=== PATIENT | female | born 1980 | race Caucasian/White ===

== ENCOUNTER 2021-04-01 13:29 | Emergency (ER) | payer SELFPAY ==
[~2021-04-01] VITALS: Ht 175.3 cm; Wt 76.0 kg
[2021-04-01 14:35] VITALS: BP 139/88
--- NOTE | 2021-04-01 14:47 | PHYS DOC ---
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 Rates her pain 9 out of 10. She denies fever or body aches. She is coming from [facility]. [facility] [employer] O[employer]) Review of Systems: Review of Systems: Constitutional: Denies fever or chills. [] Eyes: Denies change in visual acuity. [] HENT: Denies nasal congestion or sore throat. + Dental abscess and pain [] Respiratory: Denies cough or shortness of breath. [] Cardiovascular: Denies chest pain or edema. [] GI: Denies abdominal pain, nausea, vomiting, bloody stools or diarrhea. [] : Denies dysuria. [] Musculoskeletal: Denies back pain or joint pain. [] Integument: Denies rash. +Dental abscess [] Neurologic: Denies headache, focal weakness or sensory changes. [] Endocrine: Denies polyuria or polydipsia. [] Lymphatic: Denies swollen glands. [] Psychiatric: Denies depression or anxiety. 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 [] HENT: Normocephalic, atraumatic, bilateral external ears normal, oropharynx moist, no oral exudates, nose normal. Abscess behind tooth 8 and 9 that is dime sized, tender and hard. Many dental caries. [] Eyes: PERRLA, EOMI, conjunctiva normal, no discharge. [] Neck: Normal range of motion, no tenderness, supple, no stridor. [] Cardiovascular:Heart rate regular rhythm, no murmur [] Lungs & Thorax: Bilateral breath sounds clear to auscultation [] Abdomen: Bowel sounds normal, soft, no tenderness, no masses, no pulsatile masses. [] Skin: Warm, dry, no erythema, no rash. [] Back: No tenderness, no CVA tenderness. [] Extremities: No tenderness, no cyanosis, no clubbing, ROM intact, no edema. [] Neurologic: Alert and oriented X 3, normal motor function, normal sensory function, no focal deficits noted. [] Psychologic: Affect normal, judgement normal, mood normal. [] (JEFF TODD APRN) PE: Constitutional: Well developed, well nourished, uncomfortable HENT: Normocephalic, atraumatic, hard palate abscess behind left maxillary central incisor Eyes: Conjunctiva normal, no discharge Lungs & Thorax: No respiratory distress, equal chest rise and fall Neurologic: Alert and oriented X 3, no focal deficits noted Psychologic: Affect normal, judgment normal (ANU CRISTOBAL DO) EKG: EKG: [] (JEFF TODD APRN) Radiology/Procedures: Radiology/Procedures: [] (JEFF TODD APRN) Course & Med Decision Making: Course & Med Decision Making Pertinent Labs and Imaging studies reviewed. (See chart for details) See HPI. Alert and oriented x4. Ambulatory steady gait. Skin pink warm dry. Many missing teeth and dental caries. Patient has hard tender abscess to the top of the mouth right behind the back of her teeth 8 and 9. Afebrile. I&D Location: Roof of mouth distal to tooth 8 and 9 Anesthesia: Hurricaine spray and 2% lidocaine Scalpel size: 20-gauge needle Skin: Crooks Drainage: Purulent and bloody Packing: None Patient tolerated the procedure well with no complications. The area was prepped and draped in usual sterile fashion. Area was cleaned with chloehexidine prior to procedure. Return for signs and symptoms of infection education given. Patient to return in 48 hours for wound recheck. [] (JEFF TODD APRN) Dragon Disclaimer: Dragon Disclaimer: This electronic medical record was generated, in whole or in part, using a voice recognition dictation system. (JEFF TODD APRN) Departure Departure Impression: Primary Impression: Dental abscess Disposition: HOME / SELF CARE / HOMELESS Condition: STABLE Referrals: NO PCP (PCP) Patient Instructions: Dental Abscess, Dental Caries Additional Instructions: Follow-up with a dentist soon as possible. Take antibiotic as prescribed and with food. Take the ibuprofen to help with your pain. Use the mouth wash solution to swish and spit after each meal. Scripts Ibuprofen (IBUPROFEN) 600 Mg Tablet 600 MG PO PRN Q6HRS PRN for INFLAMMATION, #30 TAB Prov: JEFF TODD APRN 04/01/21 Clindamycin Hcl (CLINDAMYCIN HCL) 300 Mg Capsule 1 CAP PO TID, #30 CAP Prov: JEFF TODD APRN 04/01/21 Chlorhexidine Gluconate (PERIDEX) 15 Ml Mouthwash 15-30 ML PO TID, #473 ML 0 Refills Prov: JEFF TODD APRN 04/01/21 Attending Signature Attending Signature I have personally interviewed and examined the patient. All charts, labs, and imaging studies were reviewed. I agree with the PA/MORTGAGE LOAN REVIEWER's findings, exam, and plan. (ANU CRISTOBAL DO) JEFF TODD APRN Apr 01, 2021 14:47 ANU CRISTOBAL DO Apr 03, 2021 06:30
[2021-04-01] MEDS ORDERED: CHLO15MO2 PO (14:57)
[2021-04-01] MEDS ORDERED: IBUP-1007 PO (14:57)
[2021-04-01] MEDS ORDERED: CLIN-94 PO (14:57)
[2021-04-01] MEDS ORDERED: LIDOCAINE 2% Multi-Dose 20 ML VIAL. IJ ONE (15:00)
[2021-04-01] MEDS ORDERED: BENZOCAINE ONE 20% MUCOSAL SPRAY. MM (15:00)
== END 2021-04-01 16:21 | disposition home or self-care (01) ==
LOC: ER 13:29
DX: K04.7 Periapical abscess without sinus (principal); Z88.0 Allergy status to penicillin; Z88.8 Allergy status to other drugs, medicaments and biological substances
CPT/HCPCS: 41800; 99283; 99284

== ENCOUNTER 2021-06-16 23:12 | Observation (INO) | payer SELFPAY ==
[~2021-06-16] VITALS: Ht 180.3 cm; Wt 88.8 kg
[~2021-06-16 23:12] MED LIST: CHLO15MO2 PO; CLIN-94 PO; IBUP-1007 PO; OXYC1TAB15 PO
--- NOTE | 2021-06-16 23:28 | PHYS DOC ---
Past Medical History Past Medical History: No Pertinent History Additional Past Medical Histor: "ESOPHAGUS PROBLEMS" DRUG ABUSE Past Surgical History: Cholecystectomy, Tubal ligation Smoking Status: Never Smoker Alcohol Use: None Drug Use: None General Adult EDM: Chief Complaint: NAUSEA/VOMITING/DIARRHEA HPI: HPI: Patient is a 40 year old female who presents here with abdominal pain, nausea, vomiting as well as constipation. She reports mid thoracic back pain as well. She has been previously admitted here several times for complications relating to cholecystectomy. She denies fevers chills. She denies hematemesis. She denies chest pain, cough, dyspnea. She denies urinary symptoms. She has no known previous history of bowel obstructions. Review of Systems: Review of Systems: Constitutional: Denies fever or chills. [] Respiratory: Denies cough or shortness of breath. [] Cardiovascular: Denies chest pain or edema. [] GI: Abdominal pain, nausea, vomiting, constipation. : Denies urinary symptoms Musculoskeletal: Drastic back pain Integument: Denies rash. [] Neurologic: Denies headache, focal weakness or sensory changes. [] Psychiatric: Denies depression or anxiety. [] Heart Score: C/O Chest Pain: No Risk Factors: Risk Factors: DM, Current or recent (<one month) smoker, HTN, HLP, family history of CAD, obesity. Risk Scores: Score 0 - 3: 2.5% MACE over next 6 weeks - Discharge Home Score 4 - 6: 20.3% MACE over next 6 weeks - Admit for Clinical Observation Score 7 - 10: 72.7% MACE over next 6 weeks - Early Invasive Strategies Allergies: Allergies: Allergies Coded Allergies Type Severity Reaction Last Updated Verified nalbuphine HCl Allergy Severe ANAPHYLAXIS 06/09/21 Yes Penicillins Allergy Intermediate Rash 06/17/13 Yes Physical Exam: PE: Constitutional: Well developed, well nourished, no acute distress, non-toxic appearance. [] HENT: Normocephalic, atraumatic, mucous membranes are moist Eyes: Conjunctiva normal, no discharge. No scleral icterus Neck: Normal range of motion, no tenderness, supple, no stridor. [] Cardiovascular:Heart rate regular rhythm, no murmur [] Lungs & Thorax: Bilateral breath sounds clear to auscultation [] Abdomen: Abdomen is soft, nondistended, epigastric tenderness to palpation, periumbilical tenderness to palpation. No lower abdominal tenderness. No guarding, no rebound tenderness, no rigidity. No CVA tenderness. No flank abdominal ecchymoses are noted. Skin: Warm, dry, no erythema, no rash. No jaundice. Back: No tenderness, no CVA tenderness. [] Extremities: No tenderness, no cyanosis, no clubbing, ROM intact, no edema. [] Neurologic: Alert and oriented X 3, normal motor function, normal sensory function, no focal deficits noted. [] Psychologic: Affect normal, judgement normal, mood normal. [] EKG: EKG: [] Radiology/Procedures: Radiology/Procedures: IMAGING REPORT Signed PATIENT: NICOLETTE DERAS ACCOUNT: [id number] : 1980 LOCATION: ER AGE: 40 SEX: F EXAM STATUS: REG ER ORD. PHYSICIAN: FEROZ ALAVRADO DO REASON: abd pain, back pain, n/v, constipation, OMNI 300 75 ML IV PROCEDURE: CT ABD PELV W/ IV CONTRST ONLY PQRS Compliance Statement: One or more of the following individualized dose reduction techniques were utilized for this examination: 1. Automated exposure control 2. Adjustment of the mA and/or kV according to patient size 3. Use of iterative reconstruction technique CT abdomen/pelvis with contrast 06/17/2021 1:08 AM INDICATION: Abdominal pain, back pain. COMPARISON: CT abdomen/pelvis 06/09/2021 TECHNIQUE: Multiple axial CT images of the abdomen and pelvis were obtained after the intravenous administration of 75 mL Omnipaque 300. Coronal and sagittal reformats are provided. FINDINGS: There is subsegmental atelectasis or scarring in the inferior lingula. Lung bases are otherwise clear. Heart size within normal limits. Liver, spleen, adrenal glands and pancreas are normal in appearance. Gallbladder surgically absent. Interval increase in size of the common bile duct as compared to prior examination from 06/09/2021 currently measuring 9 mm and previously measuring 5 mm. Distal obstruction is a differential consideration. There is mild prominence of the main pancreatic duct not previously seen. The abdominal aorta is normal in course and caliber. There are no pathologically enlarged lymph nodes in the abdomen and pelvis. There is no abdominal free fluid. There is no free intraperitoneal air. Small and large bowel are normal in caliber. There is no evidence for bowel obstruction. There are no pericolonic inflammatory changes. A normal, nondilated appendix is visualized without adjacent inflammatory changes. The kidneys enhance symmetrically. There is no suspicious renal mass. There is no hydronephrosis. There are no suspected calculi within the kidneys, ureters or urinary bladder. Urinary bladder is within normal limits given degree of distention. Uterus and adnexa are normal by CT. Mild adnexal varices. No suspicious osseous abnormality is identified. IMPRESSION: There is interval increase in size of the common bile duct with increased intrahepatic and extrahepatic biliary ductal dilatation. Consideration may be given for distal obstruction as may be seen with choledocholithiasis. Further characterization with MRCP is recommended. Correlate with hepatobiliary enzymes. Electronically signed by: Meme Yañez MD (06/17/2021 1:42 AM) [facility] DICTATED and SIGNED BY: MEME YAÑEZ MD DATE: 06/17/21 [id number] 0 Course & Med Decision Making: Course & Med Decision Making Pertinent Labs and Imaging studies reviewed. (See chart for details) Patient is given IV fluids, IV Zofran, IV morphine. She is kept n.p.o. She reports feeling much better. Transaminases appear to be significantly more elevated than previous. CT indicates possibility of common bile duct obstruction with increased intraductal hepatic dilation and common bile duct dilation. I have recommended hospitalization and admission, GI consultation. She is comfortable with this plan. She is excepted for admission by Dr. Montoya. Kisha Disclaimer: Kisha Disclaimer: This electronic medical record was generated, in whole or in part, using a voice recognition dictation system. Departure Departure Impression: Primary Impression: Abdominal pain Additional Impressions: Nausea and vomiting Transaminitis Common bile duct dilatation Disposition: ADMITTED INPATIENT Admitting Physician: JOHN (Dr. Montoya) Condition: STABLE Referrals: NO PCP (PCP) FEROZ ALVARADO DO Jun 16, 2021 23:28
[2021-06-17 00:15] LABS: BASO # 0.1 x10^3/uL (0.0-0.2); BASO % 1 % (0-3); EOS # 0.6 x10^3/uL (0.0-0.7); EOS % 6 % (0-3); HEMATOCRIT 38.2 % (36.0-47.0); HEMOGLOBIN 12.3 g/dL (12.0-15.5); LYMPH # 2.4 x10^3/uL (1.0-4.8); LYMPH % 25 % (24-48); MEAN CORPUSCULAR HEMOGLOBIN 26 pg (25-35); MEAN CORPUSCULAR HGB CONC 32 g/dL (31-37); MEAN CORPUSCULAR VOLUME 82 fL (79-100); MONO # 0.8 x10^3/uL (0.0-1.1); MONO % 9 % (0-9); NEUT % 61 % (31-73); PLATELET COUNT 439 x10^3/uL (140-400); RED BLOOD COUNT 4.69 x10^6/uL (3.50-5.40); RED CELL DISTRIBUTION WIDTH 15.1 % (11.5-14.5); WHITE BLOOD COUNT 9.9 x10^3/uL (4.0-11.0)
[2021-06-17 00:19] LABS: U PREG PATIENT NEGATIVE (NEG)
[2021-06-17 00:22] LABS: BILIRUBIN,URINE NEGATIVE (NEG); CLARITY,URINE CLEAR; COLOR,URINE YELLOW; NITRITE,URINE NEGATIVE (NEG); PROTEIN,URINE NEGATIVE (NEG-TRACE); UROBILINOGEN,URINE 0.2 mg/dL (0.2 mg/dL)
[2021-06-17 00:23] LABS: CALCIUM 8.7 mg/dL (8.5-10.1); CREATININE 0.7 mg/dL (0.6-1.0); GFR 91.8
[2021-06-17 00:26] LABS: BACTERIA,URINE MODERATE /HPF (0-FEW); RBC,URINE OCC /HPF (0-2)
[2021-06-17 00:30] LABS: ALBUMIN 3.5 g/dL (3.4-5.0); ALBUMIN/GLOBULIN RATIO 0.9 (1.0-1.7); TOTAL BILIRUBIN 0.3 mg/dL (0.2-1.0); TOTAL PROTEIN 7.5 g/dL (6.4-8.2)
[2021-06-17] MEDS ORDERED: MORPHINE SULFATE 4 MG/ML INJ. IVP ONE (00:30)
[2021-06-17] MEDS ORDERED: ONDANSETRON PF 4 MG/2 ML VIAL. IVP ONE (00:30)
[2021-06-17] MEDS ORDERED: IV NORMAL SALINE 1000ML BAG 1,000 ML IV ONE (00:30)
[2021-06-17] MEDS ORDERED: CONTRAST GIVEN. MC PRN (01:15)
[2021-06-17] MEDS ORDERED: IOHEXOL 300 MG/ML 100ML VIAL. IV ONE (01:30)
--- NOTE | 2021-06-17 01:44 | RAD ---
PQRS Compliance Statement: One or more of the following individualized dose reduction techniques were utilized for this examinat ion: 1. Automated exposure control 2. Adjustment of the mA and/or kV according to patient size 3. Use of iterative reconstruction technique CT abdomen/pelvis with contrast 06/17/2021 1:08 AM INDICATION: Abdominal pain, back pain. COMPARISON: CT abdomen/pelvis 06/09/2021 TECHNIQUE: Multiple axial CT images of the abdomen and pelvis were obtained after the intravenous adm inistration of 75 mL Omnipaque 300. Coronal and sagittal reformats are provided. FINDINGS: There is subsegmental atelectasis or scarring in the inferior lingula. Lung bases are otherwise clear . Heart size within normal limits. Liver, spleen, adrenal glands and pancreas are normal in appearanc e. Gallbladder surgically absent. Interval increase in size of the common bile duct as compared to pr ior examination from 06/09/2021 currently measuring 9 mm and previously measuring 5 mm. Distal obstruc tion is a differential consideration. There is mild prominence of the main pancreatic duct not previo usly seen. The abdominal aorta is normal in course and caliber. There are no pathologically enlarged lymph nodes in the abdomen and pelvis. There is no abdominal free fluid. There is no free intraperitoneal air. Small and large bowel are normal in caliber. There is no evidence for bowel obstruction. There are no pericolonic inflammatory changes. A normal, nondilated appendix is visualized without adjacent infla mmatory changes. The kidneys enhance symmetrically. There is no suspicious renal mass. There is no hydronephrosis. The re are no suspected calculi within the kidneys, ureters or urinary bladder. Urinary bladder is within normal limits given degree of distention. Uterus and adnexa are normal by C T. Mild adnexal varices. No suspicious osseous abnormality is identified. IMPRESSION: There is interval increase in size of the common bile duct with increased intrahepatic and extrahepat ic biliary ductal dilatation. Consideration may be given for distal obstruction as may be seen with c holedocholithiasis. Further characterization with MRCP is recommended. Correlate with hepatobiliary e nzymes. Electronically signed by: Janna Jones MD (06/17/2021 1:42 AM) [facility]
[2021-06-17] MEDS ORDERED: OXYC1TAB15 PO (05:59)
[2021-06-17] MEDS ORDERED: SERT100T PO (05:59)
[2021-06-17] MEDS ORDERED: MIRT-7 PO (05:59)
[2021-06-17] MEDS ORDERED: GABA300C18 PO (05:59)
[2021-06-17] MEDS ORDERED: METR-34 PO (05:59)
[2021-06-17] MEDS ORDERED: LEVO500T9 PO (05:59)
[2021-06-17] MEDS ORDERED: CLON0.1T PO (05:59)
[2021-06-17 07:00] VITALS: BP 106/60
[2021-06-17] MEDS ORDERED: ONDANSETRON PF 4 MG/2 ML VIAL. IVP PRN ×2 (07:45→08:00)
[2021-06-17] MEDS ORDERED: MORPHINE SULFATE 4 MG/ML INJ. IV PRN (07:45)
--- NOTE | 2021-06-17 07:58 | PDOC1 ---
History and Physical Date of Admission Date of Admission DATE: 06/17/21 TIME: 07:46 Identification/Chief Complaint Chief Complaint Abdominal pain Source Source: Patient History of Present Illness History of Present Illness Ms Rutherford is a 40yo female with PMHx methamphetamine abuse in remission who comes to ED with worsening abdominal pain. Had some associated emesis. On review of systems she notes lower extremity numbness and tingling and increased urinary frequency. Status post laparoscopic cholecystectomy on 06/03/2021 who was readmitted to the hospital for abdominal pain 06/09 to 06/11/2021 which resolved she was able to eat given MEDICARE NURSE referral for concern for pelvic congestion syndrome. She returns again. Labs with WBC 9.9, Hb 12.3, platelets 439, NA 141, K4, BUN 14, CR 0.7, glucose 100, calcium 8.7, bilirubin 0.3, AST 101, ALT 127, alkaline phosphatase 174, albumin 3.5, lipase 140, urinalysis with many squamous epithelial cells negative [id number] test. CT abdomen pelvis with Toval ducts dilation intrahepatic and extrahepatic biliary ductal dilation concerning for possible choledocholithiasis Past Medical History Psych: Anxiety Family History Family History: Other Social History Smoke: 1 pack per day ALCOHOL: none Drugs: Crystal meth Current Problem List Problem List Problems Medical Problems: (1) Abdominal pain Status: Acute (2) Common bile duct dilatation Status: Acute (3) Nausea and vomiting Status: Acute (4) Transaminitis Status: Acute Current Medications Current Medications Current Medications Morphine Sulfate (Morphine Sulfate) 4 mg 1X ONCE IVP Last administered on 06/17/21at 00:19; Start 06/17/21 at 00:30; Stop 06/17/21 at 00:31; Status DC Ondansetron HCl (Zofran) 4 mg 1X ONCE IVP Last administered on 06/17/21at 00:19; Start 06/17/21 at 00:30; Stop 06/17/21 at 00:31; Status DC Sodium Chloride 1,000 ml @ 1,000 mls/hr 1X ONCE IV Last administered on 06/17/21at 00:16; Start 06/17/21 at 00:30; Stop 06/17/21 at 01:29; Status DC Iohexol (Omnipaque 300 Mg/ml) 75 ml 1X ONCE IV Last administered on 06/17/21at 01:29; Start 06/17/21 at 01:30; Stop 06/17/21 at 01:31; Status DC Info (CONTRAST GIVEN -- Rx MONITORING) 1 each PRN DAILY PRN MC SEE COMMENTS; Start 06/17/21 at 01:15; Stop 06/19/21 at 01:14 Ondansetron HCl (Zofran) 4 mg PRN Q8HRS PRN IVP NAUSEA/VOMITING; Start 06/17/21 at 07:45; Stop 06/18/21 at 07:44; Status UNV Dextrose/Sodium Chloride 1,000 ml @ 100 mls/hr Q10H IV ; Start 06/17/21 at 07:45; Status UNV Morphine Sulfate (Morphine Sulfate) 4 mg PRN Q2HR PRN IV PAIN; Start 06/17/21 at 07:45; Status UNV Active Scripts Active Ibuprofen 600 Mg Tablet 600 Mg PO PRN Q6HRS PRN Reported Metronidazole 500 Mg Tablet 1 Tab PO TID 7 Days Levofloxacin 500 Mg Tablet 1 Tab PO DAILY Gabapentin (Gabapentin) 300 Mg Capsule 300 Mg PO BID Percocet 5-325 Mg Tablet (Oxycodone/Acetaminophen) 1 Each Tablet 2 Tab PO PRN Q4HRS PRN Percocet 5-325 Mg Tablet (Oxycodone/Acetaminophen) 1 Each Tablet 1 Tab PO PRN Q4HRS PRN Mirtazapine 15 Mg Tablet 1 Tab PO QHS Zoloft (Sertraline Hcl) 100 Mg Tablet 100 Mg PO DAILY Clonidine Hcl 0.1 Mg Tablet 1 Tab PO QHS Allergies Allergies: Coded Allergies: nalbuphine HCl (Verified Allergy, Severe, ANAPHYLAXIS, 06/09/21) Penicillins (Verified Allergy, Intermediate, Rash, 06/17/13) ROS General: YES: Fatigue, Malaise, Appetite; No: Chills, Night Sweats, Other PSYCHOLOGICAL ROS: YES: Anxiety; No: Behavioral Disorder, Concentration difficultie, Decreased libido, Depression, Disorientation, Hallucinations, Hostility, Irritablity, Memory difficulties, Mood Swings, Obsessive thoughts, Physical abuse, Sexual abuse, Sleep disturbances, Suicidal ideation, Other Eyes: No Blurry vision, No Decreased vision, No Double vision, No Dry eyes, No Excessive tearing, No Eye Pain, No Itchy Eyes, No Loss of vision, No Photophobia, No Scotomata, No Uses contacts, No Uses glasses, No Other HEENT: No: Heacaches, Visual Changes, Hearing change, Nasal congestion, Nasal discharge, Oral lesions, Sinus pain, Sore Throat, Epistaxis, Sneezing, Snoring, Tinnitus, Vertigo, Vocal changes, Other ALLERGY AND IMMUNOLOGY: No: Hives, Insect Bite Sensitivity, Itchy/Watery Eyes, Nasal Congestion, Post Nasal Drip, Seasonal Allergies, Other Hematological and Lymphatic: No: Bleeding Problems, Blood Clots, Blood Transfusions, Brusing, Night Sweats, Pallor, Swollen Lymph Nodes, Other ENDOCRINE: No: Breast Changes, Galactorrhea, Hair Pattern Changes, Hot Flashes, Malaise/lethargy, Mood Swings, Palpitations, Polydipsia/polyuria, Skin Changes, Temperature Intolerance, Unexpected Weight Changes, Other Breast: No New/Changing Breast Lumps, No Nipple changes, No Nipple discharge, No Other Respiratory: No: Cough, Hemoptysis, Orthopnea, Pleuritic Pain, Shortness of breath, SOB with excertion, Sputum Changes, Stridor, Tachypnea, Wheezing, Other Cardiovascular: No Chest Pain, No Palpitations, No Orthopnea, No Paroxysmal Noc. Dyspnea, No Edema, No Lt Headedness, No Other Gastrointestinal: Yes Nausea, Yes Vomiting, Yes Abdominal Pain; No Diarrhea, No Constipation, No Melena, No Hematochezia, No Other Genitourinary: No Dysuria, No Frequency, No Incontinence, No Hematuria, No Retention, No Discharge, No Urgency, No Pain, No Flank Pain, No Other, No , No , No , No , No , No , No Musculoskeletal: No Gait Disturbance, No Joint Pain, No Joint Stiffness, No Joint Swelling, No Muscle Pain, No Muscular Weakness, No Pain In:, No Swelling In:, No Other Neurological: Yes Numbness/Tingling; No Behavorial Changes, No Bowel/Bladder ControlChng, No Confusion, No Dizziness, No Gait Disturbance, No Headaches, No Impaired Coord/balance, No Memory Loss, No Seizures, No Speech Problems, No Tremors, No Visual Changes, No Weakness, No Other Skin: No Dry Skin, No Eczema, No Hair Changes, No Lumps, No Mole Changes, No Mottling, No Nail Changes, No Pruritus, No Rash, No Skin Lesion Changes, No Other, No Acne Physical Exam General: Alert, Oriented X3, Cooperative, moderate distress HEENT: Atraumatic, PERRLA, EOMI, Mucous membr. moist/pink Lungs: Clear to auscultation, Normal air movement Heart: S1S2, RRR, no thrills, no rubs, no gallops, no murmurs Abdomen: Normal bowel sounds, Soft, No hepatosplenomegaly, No masses, Other (epigastric pain) Rectal Exam: not examined Extremities: No clubbing, No cyanosis, No edema, Normal pulses, No tenderness/swelling Skin: No rashes, No breakdown, No significant lesion Neuro: Normal gait, Normal speech, Strength at 5/5 X4 ext, Normal tone, Sensation intact, Cranial nerves 3-12 NL, Reflexes 2+ Psych/Mental Status: Mental status NL, Mood NL Vitals Vitals Vital Signs Date Time Temp Pulse Resp B/P (MAP) Pulse Ox O2 Delivery O2 Flow Rate FiO2 06/17/21 04:30 Room Air 06/17/21 04:01 58 14 94/52 (66) 97 06/16/21 23:35 98.0 98.0 Labs Labs Laboratory Tests Test 06/17/21 00:02 06/17/21 00:05 Bedside Urine HCG, Qualitative Hcg negative (Negative) White Blood Count 9.9 x10^3/uL (4.0-11.0) Red Blood Count 4.69 x10^6/uL (3.50-5.40) Hemoglobin 12.3 g/dL (12.0-15.5) Hematocrit 38.2 % (36.0-47.0) Mean Corpuscular Volume 82 fL (79-100) Mean Corpuscular Hemoglobin 26 pg (25-35) Mean Corpuscular Hemoglobin Concent 32 g/dL (31-37) Red Cell Distribution Width 15.1 % (11.5-14.5) Platelet Count 439 x10^3/uL (140-400) Neutrophils (%) (Auto) 61 % (31-73) Lymphocytes (%) (Auto) 25 % (24-48) Monocytes (%) (Auto) 9 % (0-9) Eosinophils (%) (Auto) 6 % (0-3) Basophils (%) (Auto) 1 % (0-3) Neutrophils # (Auto) 6.0 x10^3/uL (1.8-7.7) Lymphocytes # (Auto) 2.4 x10^3/uL (1.0-4.8) Monocytes # (Auto) 0.8 x10^3/uL (0.0-1.1) Eosinophils # (Auto) 0.6 x10^3/uL (0.0-0.7) Basophils # (Auto) 0.1 x10^3/uL (0.0-0.2) Urine Collection Type Unknown Urine Color Yellow Urine Clarity Clear Urine pH 6.0 (<5.0-8.0) Urine Specific [place] >=1.030 (1.000-1.030) Urine Protein Negative mg/dL (NEG-TRACE) Urine Glucose (UA) Negative mg/dL (NEG) Urine Ketones (Stick) Negative mg/dL (NEG) Urine Blood Moderate (NEG) Urine Nitrite Negative (NEG) Urine Bilirubin Negative (NEG) Urine Urobilinogen Dipstick 0.2 mg/dL (0.2 mg/dL) Urine Leukocyte Esterase Trace (NEG) Urine RBC Occ /HPF (0-2) Urine WBC 1-4 /HPF (0-4) Urine Squamous Epithelial Cells Many /LPF Urine Bacteria Moderate /HPF (0-FEW) Urine Mucus Marked /LPF Urine Test Negative (NEG) Sodium Level 141 mmol/L (136-145) Potassium Level 4.0 mmol/L (3.5-5.1) Chloride Level 105 mmol/L (98-107) Carbon Dioxide Level 25 mmol/L (21-32) Anion Gap 11 (6-14) Blood Urea Nitrogen 14 mg/dL (7-20) Creatinine 0.7 mg/dL (0.6-1.0) Estimated GFR (Cockcroft-Gault) 91.8 BUN/Creatinine Ratio 20 (6-20) Glucose Level 100 mg/dL (70-99) Calcium Level 8.7 mg/dL (8.5-10.1) Total Bilirubin 0.3 mg/dL (0.2-1.0) Aspartate Amino Transf (AST/SGOT) 101 U/L (15-37) Alanine Aminotransferase (ALT/SGPT) 127 U/L (14-59) Alkaline Phosphatase 174 U/L (46-116) Total Protein 7.5 g/dL (6.4-8.2) Albumin 3.5 g/dL (3.4-5.0) Albumin/Globulin Ratio 0.9 (1.0-1.7) Lipase 140 U/L (73-393) Laboratory Tests Test 06/17/21 00:02 06/17/21 00:05 Bedside Urine HCG, Qualitative Hcg negative (Negative) White Blood Count 9.9 x10^3/uL (4.0-11.0) Red Blood Count 4.69 x10^6/uL (3.50-5.40) Hemoglobin 12.3 g/dL (12.0-15.5) Hematocrit 38.2 % (36.0-47.0) Mean Corpuscular Volume 82 fL (79-100) Mean Corpuscular Hemoglobin 26 pg (25-35) Mean Corpuscular Hemoglobin Concent 32 g/dL (31-37) Red Cell Distribution Width 15.1 % (11.5-14.5) Platelet Count 439 x10^3/uL (140-400) Neutrophils (%) (Auto) 61 % (31-73) Lymphocytes (%) (Auto) 25 % (24-48) Monocytes (%) (Auto) 9 % (0-9) Eosinophils (%) (Auto) 6 % (0-3) Basophils (%) (Auto) 1 % (0-3) Neutrophils # (Auto) 6.0 x10^3/uL (1.8-7.7) Lymphocytes # (Auto) 2.4 x10^3/uL (1.0-4.8) Monocytes # (Auto) 0.8 x10^3/uL (0.0-1.1) Eosinophils # (Auto) 0.6 x10^3/uL (0.0-0.7) Basophils # (Auto) 0.1 x10^3/uL (0.0-0.2) Urine Collection Type Unknown Urine Color Yellow Urine Clarity Clear Urine pH 6.0 (<5.0-8.0) Urine Specific [place] >=1.030 (1.000-1.030) Urine Protein Negative mg/dL (NEG-TRACE) Urine Glucose (UA) Negative mg/dL (NEG) Urine Ketones (Stick) Negative mg/dL (NEG) Urine Blood Moderate (NEG) Urine Nitrite Negative (NEG) Urine Bilirubin Negative (NEG) Urine Urobilinogen Dipstick 0.2 mg/dL (0.2 mg/dL) Urine Leukocyte Esterase Trace (NEG) Urine RBC Occ /HPF (0-2) Urine WBC 1-4 /HPF (0-4) Urine Squamous Epithelial Cells Many /LPF Urine Bacteria Moderate /HPF (0-FEW) Urine Mucus Marked /LPF Urine Test Negative (NEG) Sodium Level 141 mmol/L (136-145) Potassium Level 4.0 mmol/L (3.5-5.1) Chloride Level 105 mmol/L (98-107) Carbon Dioxide Level 25 mmol/L (21-32) Anion Gap 11 (6-14) Blood Urea Nitrogen 14 mg/dL (7-20) Creatinine 0.7 mg/dL (0.6-1.0) Estimated GFR (Cockcroft-Gault) 91.8 BUN/Creatinine Ratio 20 (6-20) Glucose Level 100 mg/dL (70-99) Calcium Level 8.7 mg/dL (8.5-10.1) Total Bilirubin 0.3 mg/dL (0.2-1.0) Aspartate Amino Transf (AST/SGOT) 101 U/L (15-37) Alanine Aminotransferase (ALT/SGPT) 127 U/L (14-59) Alkaline Phosphatase 174 U/L (46-116) Total Protein 7.5 g/dL (6.4-8.2) Albumin 3.5 g/dL (3.4-5.0) Albumin/Globulin Ratio 0.9 (1.0-1.7) Lipase 140 U/L (73-393) Images Images CT ABD PELV W/ IV CONTRST ONLY There is subsegmental atelectasis or scarring in the inferior lingula. Lung bases are otherwise clear. Heart size within normal limits. Liver, spleen, adrenal glands and pancreas are normal in appearance. Gallbladder surgically absent. Interval increase in size of the common bile duct as compared to prior examination from 06/09/2021 currently measuring 9 mm and previously measuring 5 mm. Distal obstruction is a differential consideration. There is mild prominence of the main pancreatic duct not previously seen. The abdominal aorta is normal in course and caliber. There are no pathologically enlarged lymph nodes in the abdomen and pelvis. There is no abdominal free fluid. There is no free intraperitoneal air. Small and large bowel are normal in caliber. There is no evidence for bowel obstruction. There are no pericolonic inflammatory changes. A normal, nondilated appendix is visualized without adjacent inflammatory changes. The kidneys enhance symmetrically. There is no suspicious renal mass. There is no hydronephrosis. There are no suspected calculi within the kidneys, ureters or urinary bladder. Urinary bladder is within normal limits given degree of distention. Uterus and adnexa are normal by CT. Mild adnexal varices. No suspicious osseous abnormality is identified. IMPRESSION: There is interval increase in size of the common bile duct with increased intrahepatic and extrahepatic biliary ductal dilatation. Consideration may be given for distal obstruction as may be seen with choledocholithiasis. Further characterization with MRCP is recommended. Correlate with hepatobiliary enzymes. VTE Prophylaxis Ordered VTE Prophylaxis Devices: No VTE Pharmacological Prophylaxi: Yes Assessment/Plan Assessment/Plan Abdominal pain - likely choledocholithiasis vs expected post-cholecystectomy changes. Will keep NPO. Consult GI. IV pain and nausea control Bilateral lower extremity pain - good pulses. Will check mag, phos, TSH, B12 Methamphetamine abuse in remission - over 90 days Current Every Day Smoker - counseled on cessation, offered nicotine replacement therapy FEN - NPO PPX - lovenox FULL CODE Dispo - inpatient Justifications for Admission Other Justification MARCUS LAY MD Jun 17, 2021 07:58
[2021-06-17] MEDS ORDERED: NICOTINE 21MG PATCH. TD PRN (08:00)
[2021-06-17] MEDS ORDERED: BISACODYL 10 MG SUPP.RECT. PR PRN (08:00)
[2021-06-17] MEDS ORDERED: ACETAMINOPHEN 650 MG SUPP.RECT. PR PRN (08:00)
[2021-06-17] MEDS ORDERED: PROMETHAZINE 25 MG SUPP.RECT. PR PRN (08:00)
[2021-06-17] MEDS: IV DEXTROSE 5 %-0.45 % NACL 1,000 ML IV SCH ×2 (08:53→20:47)
--- NOTE | 2021-06-17 09:00 | NUR ---
Consult called in to Dr. Sorensen answering service.
[2021-06-17 10:51] VITALS: BP 110/70
[2021-06-17 11:05] LABS: BARBITURATES NEG (NEG); BENZODIAZEPINES NEG (NEG); CANNABINOIDS NEG (NEG); COCAINE NEG (NEG); METHADONE NEG (NEG); OPIATES POS (NEG); PHENCYCLIDINE NEG (NEG)
[2021-06-17 11:08] LABS: AMPHETAMINE/METHAMPHETAMINE NEG (NEG)
[2021-06-17] MEDS ORDERED: ONDANSETRON ODT 4 MG TAB.RAPDIS. PO PRN (13:45)
--- NOTE | 2021-06-17 13:54 | PDOC2 ---
GI CONSULT Date of Service: DATE: 06/17/21 TIME: 13:42 Reason For Consult: Elevated LFT's/dilated CBD HPI: HPI: 40 y/o female we saw earlier this month for abdominal pain. Found to have biliary dyskinesia and underwent lap kamryn. In for other issues since. Presented with nausea and vomiting to ER and admitted. On imaging, increase in CBD caliber and mildly elevated LFT's though normal bilirubin. We were asked to see. Currently denies abdominal symptoms or any nausea and vomiting. Says she came to ER due to lower back pain radiating into legs and bilateral "pins and needles" sensation in LE's. Denies reflux/heartburn, dysphagia, chronic n/v or abd pain, diarrhea, constipation, hematemesis, hematochezia, melena, and weight loss. EGD @ [facility] ~1 year ago for dysphagia not grossly remarkable though random biopsies from esophagus (unclear where exactly) showed increased intraepithelial eosinophils, says had esophageal dilation and was given a medication (not sure what) she took for awhile. No previous colonoscopy. Denies liver, pancreas, and PUD history. Daily ibuprofen for awhile. PMH: PMH: Psych issues, substance abuse. S/p BTL and lap kamryn. FH: Family History: Cancer (father/stomach) Social History: Smoke: Quit ALCOHOL: none Drugs: Crystal meth (in the past) ROS: GEN: Denies fevers, chills, sweats HEENT: Denies blurred vision, sore throat CV: Denies chest pain RESP: Denies shortness of air, cough GI: Per HPI : Denies hematuria, dysuria ENDO: Denies weight changes NEURO: Denies confusion, dizziness MSK: Denies weakness, joint pain/swelling SKIN: Denies jaundice, pruritus Vitals: Vitals: Vital Signs Date Time Temp Pulse Resp B/P (MAP) Pulse Ox O2 Delivery O2 Flow Rate FiO2 06/17/21 10:51 98.0 64 18 110/70 (83) 96 Room Air 98.0 Labs: Labs: Laboratory Tests Test 06/17/21 00:02 06/17/21 00:05 06/17/21 10:45 Bedside Urine HCG, Qualitative Hcg negative (Negative) White Blood Count 9.9 x10^3/uL (4.0-11.0) Red Blood Count 4.69 x10^6/uL (3.50-5.40) Hemoglobin 12.3 g/dL (12.0-15.5) Hematocrit 38.2 % (36.0-47.0) Mean Corpuscular Volume 82 fL (79-100) Mean Corpuscular Hemoglobin 26 pg (25-35) Mean Corpuscular Hemoglobin Concent 32 g/dL (31-37) Red Cell Distribution Width 15.1 % (11.5-14.5) Platelet Count 439 x10^3/uL (140-400) Neutrophils (%) (Auto) 61 % (31-73) Lymphocytes (%) (Auto) 25 % (24-48) Monocytes (%) (Auto) 9 % (0-9) Eosinophils (%) (Auto) 6 % (0-3) Basophils (%) (Auto) 1 % (0-3) Neutrophils # (Auto) 6.0 x10^3/uL (1.8-7.7) Lymphocytes # (Auto) 2.4 x10^3/uL (1.0-4.8) Monocytes # (Auto) 0.8 x10^3/uL (0.0-1.1) Eosinophils # (Auto) 0.6 x10^3/uL (0.0-0.7) Basophils # (Auto) 0.1 x10^3/uL (0.0-0.2) Urine Collection Type Unknown Urine Color Yellow Urine Clarity Clear Urine pH 6.0 (<5.0-8.0) Urine Specific [place] >=1.030 (1.000-1.030) Urine Protein Negative mg/dL (NEG-TRACE) Urine Glucose (UA) Negative mg/dL (NEG) Urine Ketones (Stick) Negative mg/dL (NEG) Urine Blood Moderate (NEG) Urine Nitrite Negative (NEG) Urine Bilirubin Negative (NEG) Urine Urobilinogen Dipstick 0.2 mg/dL (0.2 mg/dL) Urine Leukocyte Esterase Trace (NEG) Urine RBC Occ /HPF (0-2) Urine WBC 1-4 /HPF (0-4) Urine Squamous Epithelial Cells Many /LPF Urine Bacteria Moderate /HPF (0-FEW) Urine Mucus Marked /LPF Urine Test Negative (NEG) Sodium Level 141 mmol/L (136-145) Potassium Level 4.0 mmol/L (3.5-5.1) Chloride Level 105 mmol/L (98-107) Carbon Dioxide Level 25 mmol/L (21-32) Anion Gap 11 (6-14) Blood Urea Nitrogen 14 mg/dL (7-20) Creatinine 0.7 mg/dL (0.6-1.0) Estimated GFR (Cockcroft-Gault) 91.8 BUN/Creatinine Ratio 20 (6-20) Glucose Level 100 mg/dL (70-99) Calcium Level 8.7 mg/dL (8.5-10.1) Total Bilirubin 0.3 mg/dL (0.2-1.0) Aspartate Amino Transf (AST/SGOT) 101 U/L (15-37) Alanine Aminotransferase (ALT/SGPT) 127 U/L (14-59) Alkaline Phosphatase 174 U/L (46-116) Total Protein 7.5 g/dL (6.4-8.2) Albumin 3.5 g/dL (3.4-5.0) Albumin/Globulin Ratio 0.9 (1.0-1.7) Lipase 140 U/L (73-393) Urine Opiates Screen Pos (NEG) Urine Methadone Screen Neg (NEG) Urine Barbiturates Neg (NEG) Urine Phencyclidine Screen Neg (NEG) Urine Amphetamine/Methamphetamine Neg (NEG) Urine Benzodiazepines Screen Neg (NEG) Urine Cocaine Screen Neg (NEG) Urine Cannabinoids Screen Neg (NEG) Urine Ethyl Alcohol Neg (NEG) Allergies: Coded Allergies: nalbuphine HCl (Verified Allergy, Severe, ANAPHYLAXIS, 06/09/21) Penicillins (Verified Allergy, Intermediate, Rash, 06/17/13) Medications: Current Medications Medications (Trade) Dose Ordered Sig/Roger Route PRN Reason Start Time Stop Time Status Last Admin Dose Admin Morphine Sulfate (Morphine Sulfate) 4 mg 1X ONCE IVP 06/17/21 00:30 06/17/21 00:31 DC 06/17/21 00:19 Ondansetron HCl (Zofran) 4 mg 1X ONCE IVP 06/17/21 00:30 06/17/21 00:31 DC 06/17/21 00:19 Sodium Chloride 1,000 ml @ 1,000 mls/hr 1X ONCE IV 06/17/21 00:30 06/17/21 01:29 DC 06/17/21 00:16 Iohexol (Omnipaque 300 Mg/ml) 75 ml 1X ONCE IV 06/17/21 01:30 06/17/21 01:31 DC 06/17/21 01:29 Dextrose/Sodium Chloride 1,000 ml @ 100 mls/hr Q10H IV 06/17/21 08:30 06/17/21 08:53 Morphine Sulfate (Morphine Sulfate) 4 mg PRN Q2HR PRN IV PAIN 06/17/21 07:45 06/17/21 13:39 DC 06/17/21 08:57 Imaging: Imaging: CT reviewed. PE: GEN: NAD HEENT: Atraumatic, PERRLA LUNGS: CTAB HEART: RRR, no murmurs ABD: NABS, S/ND/NT, no masses EXTREMITY: No edema SKIN: No rashes, no jaundice NEURO/PSYCH: A & O 3. DTR's symmetric. Sensation intact, particularly in LE's. A/P: A/P: IMP: Elevated LFT's/dilated CBD---likely due to "reservoir" effect as no associated symptoms and normal bilirubin. Some could be from continued use of narcotics which increase SOD pressure. Unclear h/o EOE, but no dysphagia currently. CRC screeing--not due, but average risk historically. REC: Minimize narcs if possible. Neuro opinion? Monitor LFT's--had negative hepatitis markers in past. ANU LOPEZ MD Jun 17, 2021 13:54
[2021-06-17 14:08] LABS: MAGNESIUM 2.1 mg/dL (1.8-2.4)
[2021-06-17 15:00] VITALS: BP 101/57
[2021-06-17] MEDS: GABAPENTIN 300 MG CAPSULE. PO SCH ×2 (15:42→20:47)
[2021-06-17] MEDS: MORPHINE SULFATE 2 MG/ML INJ. IVP PRN ×2 (15:48→20:58)
[2021-06-17 19:00] VITALS: BP 105/71
[2021-06-17 23:00] VITALS: BP 99/56
[2021-06-18 03:00] VITALS: BP 102/59
[2021-06-18] MEDS: MORPHINE SULFATE 2 MG/ML INJ. IVP PRN (06:26)
[2021-06-18 07:00] VITALS: BP 107/72
[2021-06-18] MEDS: IV DEXTROSE 5 %-0.45 % NACL 1,000 ML IV SCH ×2 (07:38→20:43)
[2021-06-18] MEDS: GABAPENTIN 300 MG CAPSULE. PO SCH ×3 (08:37→20:44)
[2021-06-18 09:34] LABS: ALBUMIN 3.4 g/dL (3.4-5.0); ALBUMIN/GLOBULIN RATIO 0.9 (1.0-1.7); CALCIUM 8.4 mg/dL (8.5-10.1); CREATININE 0.7 mg/dL (0.6-1.0); GFR 91.8; POTASSIUM 4.1 mmol/L (3.5-5.1); TOTAL BILIRUBIN 0.3 mg/dL (0.2-1.0); TOTAL PROTEIN 7.2 g/dL (6.4-8.2)
[2021-06-18] MEDS: traMADol 50 MG TABLET PO PRN ×2 (10:46→20:45)
[2021-06-18 11:00] VITALS: BP 104/69
--- NOTE | 2021-06-18 11:25 | PDOC ---
[employer] PROGRESS NOTE Date of Service DOS: DATE: 06/18/21 TIME: 11:25 Chief Complaint Chief Complaint Abdominal pain - likely choledocholithiasis vs expected post-cholecystectomy changes. Will keep NPO. Consult GI. IV pain and nausea control Bilateral lower extremity pain - good pulses. 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 Had some associated emesis. On review of systems she notes lower extremity numbness and tingling and increased urinary frequency. Status post laparoscopic cholecystectomy on 06/03/2021 who was readmitted to the hospital for abdominal pain 06/09 to 06/11/2021 which resolved she was able to eat given [employer] referral for concern for pelvic congestion syndrome. She returns again. Labs with WBC 9.9, Hb 12.3, platelets 439, NA 141, K4, BUN 14, CR 0.7, glucose 100, calcium 8.7, bilirubin 0.3, AST 101, ALT 127, alkaline phosphatase 174, albumin 3.5, lipase 140, urinalysis with many squamous epithelial cells negative [id number] test. CT abdomen pelvis with Toval ducts dilation intrahepatic and extrahepatic biliary ductal dilation concerning for possible choledocholithiasis 06/18: Nausea improved abdominal pain improving. Transaminases mildly trended upward. Has some worse back pain and shooting pain down bilateral legs which was present on admission she thinks is worse today. Given sciatica exercises will give steroid burst and muscle relaxants today. Hopefully discharge in the next 24 hours. Vitals/I&O Vitals/I&O: Vital Signs Date Time Temp Pulse Resp B/P (MAP) Pulse Ox O2 Delivery O2 Flow Rate FiO2 06/18/21 11:00 97.4 61 14 104/69 (81) 95 Room Air 97.4 I & O 06/17/21 06/17/21 06/18/21 15:00 23:00 07:00 Intake Total 300 ml 200 ml Balance 300 ml 200 ml Physical Exam General: Alert, Oriented X3, Cooperative, moderate distress Abdomen: Normal bowel sounds, Soft, No hepatosplenomegaly, No masses, Other (epigastric pain) Extremities: No clubbing, No cyanosis, No edema, Normal pulses, No tenderness/swelling Skin: No rashes, No breakdown, No significant lesion Labs Labs: Laboratory Tests Test 06/18/21 07:40 Sodium Level 139 mmol/L (136-145) Potassium Level 4.1 mmol/L (3.5-5.1) Chloride Level 104 mmol/L (98-107) Carbon Dioxide Level 29 mmol/L (21-32) Anion Gap 6 (6-14) Blood Urea Nitrogen 12 mg/dL (7-20) Creatinine 0.7 mg/dL (0.6-1.0) Estimated GFR (Cockcroft-Gault) 91.8 BUN/Creatinine Ratio 17 (6-20) Glucose Level 104 mg/dL (70-99) Calcium Level 8.4 mg/dL (8.5-10.1) Total Bilirubin 0.3 mg/dL (0.2-1.0) Aspartate Amino Transf (AST/SGOT) 157 U/L (15-37) Alanine Aminotransferase (ALT/SGPT) 182 U/L (14-59) Alkaline Phosphatase 188 U/L (46-116) Total Protein 7.2 g/dL (6.4-8.2) Albumin 3.4 g/dL (3.4-5.0) Albumin/Globulin Ratio 0.9 (1.0-1.7) Assessment and Plan Assessmemt and Plan Problems Medical Problems: (1) Abdominal pain Status: Acute (2) Common bile duct dilatation Status: Acute (3) Nausea and vomiting Status: Acute (4) Transaminitis Status: Acute Comment Review of Relevant I have reviewed the following items wei (where applicable) has been applied. Medications: Current Medications Medications (Trade) Dose Ordered Sig/Roger Route PRN Reason Start Time Stop Time Status Last Admin Dose Admin Morphine Sulfate (Morphine Sulfate) 1 mg PRN Q4HRS PRN IVP PAIN 06/17/21 13:45 06/18/21 06:26 Tramadol HCl (Ultram) 50 mg PRN Q6HRS PRN PO PAIN 06/17/21 13:45 06/18/21 10:46 Gabapentin (Neurontin) 300 mg TID PO 06/17/21 15:00 06/18/21 08:37 Justifications for Admission Other Justification WOODFEFlako,MARCUS Grant MD Jun 18, 2021 11:25
[2021-06-18] MEDS ORDERED: CYCLOBENZAPRINE 10 MG TABLET. PO PRN (12:30)
[2021-06-18] MEDS ORDERED: methylPREDNISolone SOD SUCC PF 125 MG/2 ML VIAL. IV ONE (13:00)
[2021-06-18 15:00] VITALS: BP 128/89
[2021-06-18 19:00] VITALS: BP 107/70
[2021-06-18 23:00] VITALS: BP 108/70
[2021-06-19] MEDS: IV DEXTROSE 5 %-0.45 % NACL 1,000 ML IV SCH ×2 (00:30→09:58)
[2021-06-19 03:00] VITALS: BP 98/60
[2021-06-19 07:00] VITALS: BP 97/68
[2021-06-19] MEDS: GABAPENTIN 300 MG CAPSULE. PO SCH (08:06)
[2021-06-19 08:52] LABS: ALBUMIN 3.3 g/dL (3.4-5.0); ALBUMIN/GLOBULIN RATIO 0.8 (1.0-1.7); CALCIUM 8.5 mg/dL (8.5-10.1); CREATININE 0.6 mg/dL (0.6-1.0); GFR 109.6; POTASSIUM 3.6 mmol/L (3.5-5.1); TOTAL BILIRUBIN 0.2 mg/dL (0.2-1.0); TOTAL PROTEIN 7.2 g/dL (6.4-8.2)
[2021-06-19] MEDS ORDERED: predniSONE 20 MG TABLET PO SCH (09:00)
[2021-06-19] MEDS: MORPHINE SULFATE 2 MG/ML INJ. IVP PRN (09:59)
--- NOTE | 2021-06-19 10:43 | NUR ---
SW following. Discussed with RN, pt from home, room air, regular diet. GI following. Med Assist following for self pay status. SW will continue to follow.
[2021-06-19 11:00] VITALS: BP 115/71
--- NOTE | 2021-06-19 11:00 | PDOC ---
Date of Service: DATE: 06/19/21 TIME: 10:54 Subjective: Subjective: Low back pain radiating down legs, Tramadol and Flexedril not helpful. Denies abdominal pain, denies vomiting - indicates not reasons she came to the hospital. Significant other w/ questions about bilirubin, if she has cancer, if she should drink more water. 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 Has [facility] appt 06/26. They like Dr. Montoya. Objective: Vital Signs: Vital Signs Date Time Temp Pulse Resp B/P (MAP) Pulse Ox O2 Delivery O2 Flow Rate FiO2 06/19/21 10:29 Room Air 06/19/21 07:00 98.1 82 14 97/68 (78) 95 98.1 Labs: Laboratory Tests Test 06/19/21 07:20 Sodium Level 139 mmol/L Potassium Level 3.6 mmol/L Chloride Level 104 mmol/L Carbon Dioxide Level 26 mmol/L Anion Gap 9 Blood Urea Nitrogen 10 mg/dL Creatinine 0.6 mg/dL Estimated GFR (Cockcroft-Gault) 109.6 BUN/Creatinine Ratio 17 Glucose Level 104 mg/dL Calcium Level 8.5 mg/dL Total Bilirubin 0.2 mg/dL Aspartate Amino Transf (AST/SGOT) 66 U/L Alanine Aminotransferase (ALT/SGPT) 142 U/L Alkaline Phosphatase 170 U/L Total Protein 7.2 g/dL Albumin 3.3 g/dL Albumin/Globulin Ratio 0.8 PE: GEN: NAD HEENT: poor dentition LUNGS: CTAB HEART: RRR ABD: soft, non-tender NEURO/PSYCH: A & O 3 A/P: Lower back/pelvic pain Elevated LFTs - better Dilated CBD - likely "reservoir" effect post kamryn, possibly narcotic use w/ increased SOD pressure ?h/o EoE H/o meth abuse in remission -- Labs improving, denies GI complaints - observe from GI standpoint. Justicifation of Admission Dx: Justifications for Admission: Justification of Admission Dx: Yes DEVIN DILL Jun 19, 2021 11:00
[2021-06-19] MEDS ORDERED: PANTOPRAZOLE 40 MG TABLET.DR. PO SCH (12:00)
[2021-06-19] MEDS ORDERED: CYCL10TA19 PO (12:09)
[2021-06-19] MEDS ORDERED: PANT40TA77 PO (12:09)
[2021-06-19] MEDS ORDERED: METH4TAB2 PO (12:09)
--- NOTE | 2021-06-19 12:15 | PDOC ---
[facility] PROGRESS NOTE Date of Service DOS: DATE: 06/19/21 TIME: 12:13 Chief Complaint Chief Complaint Abdominal pain - likely choledocholithiasis vs expected post-cholecystectomy changes. Will keep NPO. Consult GI. IV pain and nausea control Bilateral lower extremity pain - good pulses. 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 Had some associated emesis. On review of systems she notes lower extremity numbness and tingling and increased urinary frequency. Status post laparoscopic cholecystectomy on 06/03/2021 who was readmitted to the hospital for abdominal pain 06/09 to 06/11/2021 which resolved she was able to eat given [employer] referral for concern for pelvic congestion syndrome. She returns again. Labs with WBC 9.9, Hb 12.3, platelets 439, NA 141, K4, BUN 14, CR 0.7, glucose 100, calcium 8.7, bilirubin 0.3, AST 101, ALT 127, alkaline phosphatase 174, albumin 3.5, lipase 140, urinalysis with many squamous epithelial cells negative [id number] test. CT abdomen pelvis with Toval ducts dilation intrahepatic and extrahepatic biliary ductal dilation concerning for possible choledocholithiasis 06/18: Nausea improved abdominal pain improving. Transaminases mildly trended upward. Has some worse back pain and shooting pain down bilateral legs which was present on admission she thinks is worse today. Given sciatica exercises will give steroid burst and muscle relaxants today. Hopefully discharge in the next 24 hours. 06/19: LFTs trending downward. Counseled on low-fat diet. Work with therapy had some pain but a little improved in bilateral legs after 2 doses of steroids and muscle relaxant she feels like tramadol did not help much with her pain but she wants to try outpatient physical therapy advised work restrictions which is recovering from sciatica sent in [employer] cyclobenzaprine she already has oxycodone at home. Discussed with her and significant other bedside. Physical therapy was given sciatica exercises and referral for aquatic therapy. Vitals/I&O Vitals/I&O: Vital Signs Date Time Temp Pulse Resp B/P (MAP) Pulse Ox O2 Delivery O2 Flow Rate FiO2 06/19/21 11:00 98.5 81 14 115/71 (86) 95 Room Air 98.5 I & O 06/18/21 06/18/21 06/19/21 15:00 23:00 07:00 Intake Total 220 ml 500 ml Balance 220 ml 500 ml Physical Exam General: Alert, Oriented X3, Cooperative, moderate distress Abdomen: Normal bowel sounds, Soft, No hepatosplenomegaly, No masses, Other (epigastric pain) Extremities: No clubbing, No cyanosis, No edema, Normal pulses, No tenderness/swelling Skin: No rashes, No breakdown, No significant lesion Labs Labs: Laboratory Tests Test 06/19/21 07:20 Sodium Level 139 mmol/L (136-145) Potassium Level 3.6 mmol/L (3.5-5.1) Chloride Level 104 mmol/L (98-107) Carbon Dioxide Level 26 mmol/L (21-32) Anion Gap 9 (6-14) Blood Urea Nitrogen 10 mg/dL (7-20) Creatinine 0.6 mg/dL (0.6-1.0) Estimated GFR (Cockcroft-Gault) 109.6 BUN/Creatinine Ratio 17 (6-20) Glucose Level 104 mg/dL (70-99) Calcium Level 8.5 mg/dL (8.5-10.1) Total Bilirubin 0.2 mg/dL (0.2-1.0) Aspartate Amino Transf (AST/SGOT) 66 U/L (15-37) Alanine Aminotransferase (ALT/SGPT) 142 U/L (14-59) Alkaline Phosphatase 170 U/L (46-116) Total Protein 7.2 g/dL (6.4-8.2) Albumin 3.3 g/dL (3.4-5.0) Albumin/Globulin Ratio 0.8 (1.0-1.7) Assessment and Plan Assessmemt and Plan Problems Medical Problems: (1) Abdominal pain Status: Acute (2) Common bile duct dilatation Status: Acute (3) Nausea and vomiting Status: Acute (4) Transaminitis Status: Acute Comment Review of Relevant I have reviewed the following items wei (where applicable) has been applied. Medications: Current Medications Medications (Trade) Dose Ordered Sig/Roger Route PRN Reason Start Time Stop Time Status Last Admin Dose Admin Methylprednisolone Sodium Succinate (SOLU-Medrol 125MG VIAL) 125 mg 1X ONCE IV 06/18/21 13:00 06/18/21 13:01 DC 06/18/21 13:42 Cyclobenzaprine HCl (Flexeril) 10 mg PRN Q6HRS PRN PO MUSCLE SPASMS 06/18/21 12:30 06/18/21 14:45 Prednisone (Prednisone) 20 mg DAILY PO 06/19/21 09:00 06/24/21 08:59 06/19/21 08:07 Justifications for Admission Other Justification MARCUS LAY MD Jun 19, 2021 12:14
--- NOTE | 2021-06-19 12:16 | PDOC3 ---
Discharge Summary Visit Information Date of Admission: Jun 17, 2021 Date of Discharge: Jun 19, 2021 Admitting Diagnosis: Abdominal pain, nausea and vomiting, sciatica Final Diagnosis Problems Medical Problems: (1) Abdominal pain Status: Acute (2) Common bile duct dilatation Status: Acute (3) Nausea and vomiting Status: Acute (4) Transaminitis Status: Acute Brief Hospital Course Allergies Allergies Coded Allergies Type Severity Reaction Last Updated Verified nalbuphine HCl Allergy Severe ANAPHYLAXIS 06/09/21 Yes Penicillins Allergy Intermediate Rash 06/17/13 Yes Vital Signs Vital Signs Date Time Temp Pulse Resp B/P (MAP) Pulse Ox O2 Delivery O2 Flow Rate FiO2 06/19/21 11:00 98.5 81 14 115/71 (86) 95 Room Air 98.5 Lab Results Laboratory Tests Test 06/18/21 07:40 06/19/21 07:20 Sodium Level 139 mmol/L (136-145) 139 mmol/L (136-145) Potassium Level 4.1 mmol/L (3.5-5.1) 3.6 mmol/L (3.5-5.1) Chloride Level 104 mmol/L (98-107) 104 mmol/L (98-107) Carbon Dioxide Level 29 mmol/L (21-32) 26 mmol/L (21-32) Anion Gap 6 (6-14) 9 (6-14) Blood Urea Nitrogen 12 mg/dL (7-20) 10 mg/dL (7-20) Creatinine 0.7 mg/dL (0.6-1.0) 0.6 mg/dL (0.6-1.0) Estimated GFR (Cockcroft-Gault) 91.8 109.6 BUN/Creatinine Ratio 17 (6-20) 17 (6-20) Glucose Level 104 mg/dL (70-99) 104 mg/dL (70-99) Calcium Level 8.4 mg/dL (8.5-10.1) 8.5 mg/dL (8.5-10.1) Total Bilirubin 0.3 mg/dL (0.2-1.0) 0.2 mg/dL (0.2-1.0) Aspartate Amino Transf (AST/SGOT) 157 U/L (15-37) 66 U/L (15-37) Alanine Aminotransferase (ALT/SGPT) 182 U/L (14-59) 142 U/L (14-59) Alkaline Phosphatase 188 U/L (46-116) 170 U/L (46-116) Total Protein 7.2 g/dL (6.4-8.2) 7.2 g/dL (6.4-8.2) Albumin 3.4 g/dL (3.4-5.0) 3.3 g/dL (3.4-5.0) Albumin/Globulin Ratio 0.9 (1.0-1.7) 0.8 (1.0-1.7) Laboratory Tests Test 06/19/21 07:20 Sodium Level 139 mmol/L (136-145) Potassium Level 3.6 mmol/L (3.5-5.1) Chloride Level 104 mmol/L (98-107) Carbon Dioxide Level 26 mmol/L (21-32) Anion Gap 9 (6-14) Blood Urea Nitrogen 10 mg/dL (7-20) Creatinine 0.6 mg/dL (0.6-1.0) Estimated GFR (Cockcroft-Gault) 109.6 BUN/Creatinine Ratio 17 (6-20) Glucose Level 104 mg/dL (70-99) Calcium Level 8.5 mg/dL (8.5-10.1) Total Bilirubin 0.2 mg/dL (0.2-1.0) Aspartate Amino Transf (AST/SGOT) 66 U/L (15-37) Alanine Aminotransferase (ALT/SGPT) 142 U/L (14-59) Alkaline Phosphatase 170 U/L (46-116) Total Protein 7.2 g/dL (6.4-8.2) Albumin 3.3 g/dL (3.4-5.0) Albumin/Globulin Ratio 0.8 (1.0-1.7) Brief Hospital Course Ms Rutherofrd is a 40yo female with PMHx methamphetamine abuse in remission who comes to ED with worsening abdominal pain. Had some associated emesis. On review of systems she notes lower extremity numbness and tingling and increased urinary frequency. Status post laparoscopic cholecystectomy on 06/03/2021 who was readmitted to the hospital for abdominal pain 06/09 to 06/11/2021 which resolved she was able to eat given [employer] referral for concern for pelvic congestion syndrome. She returns again. Labs with WBC 9.9, Hb 12.3, platelets 439, NA 141, K4, BUN 14, CR 0.7, glucose 100, calcium 8.7, bilirubin 0.3, AST 101, ALT 127, alkaline phosphatase 174, albumin 3.5, lipase 140, urinalysis with many squamous epithelial cells negative [id number] test. CT abdomen pelvis with Toval ducts dilation intrahepatic and extrahepatic biliary ductal dilation concerning for possible choledocholithiasis 06/18: Nausea improved abdominal pain improving. Transaminases mildly trended upward. Has some worse back pain and shooting pain down bilateral legs which was present on admission she thinks is worse today. Given sciatica exercises will give steroid burst and muscle relaxants today. Hopefully discharge in the next 24 hours. 06/19: LFTs trending downward. Counseled on low-fat diet. Work with therapy had some pain but a little improved in bilateral legs after 2 doses of steroids and muscle relaxant she feels like tramadol did not help much with her pain but she wants to try outpatient physical therapy advised work restrictions which is recovering from sciatica sent in [email or web address] cyclobenzaprine she already has oxycodone at home. Discussed with her and significant other bedside. Physical therapy was given sciatica exercises and referral for aquatic therapy. Consults: GI Problem list: Abdominal pain - likely choledocholithiasis vs expected post-cholecystectomy changes. Will keep NPO. Consult GI. IV pain and nausea control Bilateral lower extremity pain - good pulses. 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 Current Every Day Smoker - counseled on cessation, offered nicotine replacement therapy Greater than 30 minutes spent on d/c home with outpatient therapy Discharge Information Condition at Discharge: Improved Follow Up: Weeks (1) Disposition/Orders: D/C to Home Scheduled Clonidine Hcl (Clonidine Hcl) 0.1 Mg Tablet, 1 TAB PO QHS for Anxiety, #30 Ref 1 (Reported) Entered as Reported by: STEFFEN MARTINI LPN on 06/17/21558 Last Action: New Order on 06/17/21558 by STEFFEN MARTINI LPN Gabapentin (Gabapentin ) 300 Mg Capsule, 300 MG PO BID for NEUROGENIC PAIN, (Reported) Entered as Reported by: STEFFEN MARTINI LPN on 06/17/21558 Last Action: New Order on 06/17/21558 by STEFFEN MARTINI LPN Methylprednisolone (Medrol) 4 Mg Tab.ds.pk, 1 PKG PO UD for Sciatica for 6 Days, #1 Prescribed by: MARCUS LAY MD on 06/19/211208 Mirtazapine (Mirtazapine) 15 Mg Tablet, 1 TAB PO QHS for Depression, #30 Ref 3 (Reported) Entered as Reported by: STEFFEN MARTINI LPN on 06/17/21558 Last Action: New Order on 06/17/21558 by STEFFEN MARTINI LPN Pantoprazole Sodium (Pantoprazole Sodium ) 40 Mg Tablet.dr, 40 MG PO DAILYAC for GERD for 30 Days, #30 Prescribed by: MARCUS LAY MD on 06/19/211208 Sertraline Hcl (Zoloft) 100 Mg Tablet, 100 MG PO DAILY for ANTI-DEPRESSANT, Ref 0 (Reported) Entered as Reported by: STEFFEN MARTINI LPN on 06/17/21558 Last Action: New Order on 06/17/21558 by STEFFEN MARTINI LPN Scheduled PRN Cyclobenzaprine Hcl (Cyclobenzaprine Hcl) 10 Mg Tablet, 10 MG PO PRN Q6HRS PRN for MUSCLE SPASMS for 10 Days, #30 Prescribed by: MARCUS LAY MD on 06/19/21 120 Ibuprofen (Ibuprofen) 600 Mg Tablet, 600 MG PO PRN Q6HRS PRN for INFLAMMATION, #30 Prescribed by: JEFF TODD APRN on 04/01/21 5447 Oxycodone/Apap 5-325 (Percocet 5-325 Mg Tablet ) 1 Each Tablet, 1 TAB PO PRN Q4HRS PRN for PAIN, Ref 0 (Reported) Entered as Reported by: STEFFEN MARTINI LPN on 06/17/21558 Last Action: New Order on 06/17/21558 by STEFFEN MARTINI LPN Discontinued Medications Levofloxacin (Levofloxacin) 500 Mg Tablet, 1 TAB PO DAILY for Infection, #7 (Reported) Entered as Reported by: STEFFEN MARTINI LPN on 06/17/21558 Last Action: New Order on 06/17/21558 by STEFFEN MARTINI LPN Metronidazole (Metronidazole) 500 Mg Tablet, 1 TAB PO TID for Infection for 7 Days, #21 Ref 0 (Reported) Entered as Reported by: STEFFEN MARTINI LPN on 06/17/21558 Last Action: New Order on 06/17/21558 by STEFFEN MARTINI LPN Oxycodone/Apap 5-325 (Percocet 5-325 Mg Tablet ) 1 Each Tablet, 2 TAB PO PRN Q4HRS PRN for PAIN, Ref 0 (Reported) Entered as Reported by: STEFFEN MARTINI LPN on 06/17/21558 Last Action: New Order on 06/17/21558 by STEFFEN MARTINI LPN Justicifation of Admission Dx: Justifications for Admission: Justification of Admission Dx: Yes MARCUS LAY MD Jun 19, 2021 12:16
== END 2021-06-19 13:37 | disposition home or self-care (01) ==
LOC: ER 23:12 → INTOOBSV 06-17 01:50 → 4 NORTH 06-17 01:50
PROVIDERS: ADMIT Internal Medicine; ATTEND Internal Medicine
DX: R10.9 Unspecified abdominal pain (principal); K83.9 Disease of biliary tract, unspecified; R74.01 Elevation of levels of liver transaminase levels; R11.2 Nausea with vomiting, unspecified; M79.662 Pain in left lower leg; M79.661 Pain in right lower leg; K59.00 Constipation, unspecified; K82.8 Other specified diseases of gallbladder; K83.8 Other specified diseases of biliary tract; F41.9 Anxiety disorder, unspecified; F15.10 Other stimulant abuse, uncomplicated; M54.50 Low back pain, unspecified; F15.11 Other stimulant abuse, in remission; F17.210 Nicotine dependence, cigarettes, uncomplicated; N94.89 Other specified conditions associated with female genital organs and menstrual cycle; Z90.49 Acquired absence of other specified parts of digestive tract; Z98.51 Tubal ligation status; Z79.899 Other long term (current) drug therapy; Z98.890 Other specified postprocedural states
CPT/HCPCS: 36415; 74177; 80053; 80307; 81001; 81025; 82607; 83690; 83735; 84100; 84443; 85025; 87086; 96361; 96374; 96375; 96376; 97110; 97162; 99285; G0378; J2270; J2405; J2930; J7030; J7042; J7512; Q9967; G0379

== ENCOUNTER 2021-07-01 23:57 | Emergency (ER) | payer SELFPAY ==
[~2021-07-01] VITALS: Ht 180.3 cm; Wt 95.5 kg
[~2021-07-01 23:57] MED LIST changes: +CLON0.1T PO; +CYCL10TA19 PO; +GABA300C18 PO; +LEVO500T9 PO; +METH4TAB2 PO; +METR-34 PO; +MIRT-7 PO; +PANT40TA77 PO; +SERT100T PO
--- NOTE | 2021-07-02 00:15 | PHYS DOC ---
Past Medical History Past Medical History: No Pertinent History Additional Past Medical Histor: "ESOPHAGUS PROBLEMS" DRUG ABUSE (NIK LEVY APRN) Past Surgical History: Cholecystectomy, Tubal ligation (NIK LEVY APRN) Smoking Status: Former Smoker Alcohol Use: None Drug Use: None (NIK LEVY APRN) General Adult EDM: Chief Complaint: ABDOMINAL PAIN HPI: HPI: Is a 40-year-old female who presents to the emergency department today for a 3- day history of right upper quadrant pain with nausea. She rates her pain 9 out of 10. The pain does not radiate. Is worse with movement. Does not worse after meals. Patient's been taking ibuprofen for her symptoms. She denies any vomiting, diarrhea, fevers, urinary symptoms, blood in her stools. Last bowel movement was yesterday. Patient has a history of a cholecystectomy in May. (NIK LEVY APRN) Review of Systems: Review of Systems: Constitutional: See HPI GI: HPI : See HPI (NIK LEVY APRN) Heart Score: C/O Chest Pain: N/A Risk Factors: Risk Factors: DM, Current or recent (<one month) smoker, HTN, HLP, family history of CAD, obesity. Risk Scores: Score 0 - 3: 2.5% MACE over next 6 weeks - Discharge Home Score 4 - 6: 20.3% MACE over next 6 weeks - Admit for Clinical Observation Score 7 - 10: 72.7% MACE over next 6 weeks - Early Invasive Strategies (NIK LEVY APRN) C/O Chest Pain: No (PETRA DALTON MD) Allergies: Allergies: Allergies Coded Allergies Type Severity Reaction Last Updated Verified nalbuphine HCl Allergy Severe ANAPHYLAXIS 06/09/21 Yes Penicillins Allergy Intermediate Rash 06/17/13 Yes (NIK LEVY APRN) Physical Exam: PE: Constitutional: Well developed, well nourished, no acute distress, non-toxic appearance. [] HENT: Normocephalic, atraumatic, bilateral external ears normal, oropharynx moist, no oral exudates, nose normal. [] Eyes: PERRL, EOMI, conjunctiva normal, no discharge. [] Neck: Normal range of motion, no stridor Cardiovascular:Heart rate regular rhythm, no murmur [] Lungs & Thorax: Bilateral breath sounds clear to auscultation [] Abdomen: Bowel sounds normal, soft, right upper quadrant epigastric tenderness with palpation, no abdominal rigidity, no guarding, no rebound tenderness, no masses, no pulsatile masses. [] Skin: Warm, dry, no erythema, no rash. [] Back: Normal range of motion Extremities: No tenderness, no cyanosis, no clubbing, ROM intact, no edema. [] Neurologic: Alert and oriented X 3, normal motor function, normal sensory function, no focal deficits noted. [] Psychologic: Affect normal, judgement normal, mood normal. [] (NIK LEVY APRN) EKG: EKG: [] (NIK LEVY APRN) Radiology/Procedures: Radiology/Procedures: [] (NIK LEVY APRN) Course & Med Decision Making: Course & Med Decision Making Pertinent Labs and Imaging studies reviewed. (See chart for details) [] Patient presents to the emergency department for right upper quadrant pain with nausea that started 3 days ago. Work-up in the ER consisted of blood work including lipase, urinalysis and CT imaging of abdomen and pelvis. Patient had a cholecystectomy in May. Patient treated with IV fluids, nausea medication and a GI cocktail. After reviewing patients chart, it appears that patient had a cholecystectomy on Jun 05, she has been seen in this ER 2 times previously for the same symptoms she presented with today. Last seen on 06/19, it appears at that time surgery believed her pain was related to "reservoir" effect of CBD. Lab work is pending at this time. I discussed patients case with supervising physician she will assume patient care at this time due to shift change. (NIK LEVY APRN) Course & Med Decision Making Accepted patient care at the end of nurse practitioner shift, patient was pending some labs and imaging. Patient has been here numerous times in the past 2 months with the same complaint. 0050 notified by nurse that patient was requesting medications for pain went to reevaluate the patient who had received a GI cocktail but did not 15 minutes ago. Patient states that the GI cocktail not change her pain at all. When asked about what the patient has been taking for pain for home she did this when she was here because she had run out of her pain medications. This is pain is unchanged from previous but ran out of her Percocets and is not able to get them refilled because it is the weekend. Advised patient that we can do a couple of days to get her through the weekend but she really needs to follow-up with her primary physician [facility] for her chronic pain management. Discussed with patient that her new symptoms that warrant imaging that labs are not concerning, patient agrees that this is the same chronic pain she is been having since her cholecystectomy. (PETRA DALTON MD) Dragon Disclaimer: Dragon Disclaimer: This electronic medical record was generated, in whole or in part, using a voice recognition dictation system. (NIK LEVY APRN) Departure Departure Impression: Primary Impression: Chronic RUQ pain Disposition: HOME / SELF CARE / HOMELESS Condition: STABLE Referrals: NO PCP (PCP) Patient Instructions: Abdominal Pain Additional Instructions: Follow-up with your primary physician [facility] for her chronic pain management. Make sure to take stool softener such as MiraLAX while taking opioid pain medications to avoid constipation. Scripts Oxycodone/Apap 5-325 (PERCOCET 5-325 MG TABLET ) 1 Each Tablet 1 TAB PO PRN Q6HRS PRN for PAIN for 2 Days, #8 TAB 0 Refills Prov: PETRA DALTON MD 07/02/21 NIK LEVY APRN Jul 02, 2021 00:15 PETRA DALTON MD Jul 02, 2021 01:14
[2021-07-02] MEDS ORDERED: IV NORMAL SALINE 1000ML BAG 1,000 ML IV SCH (00:30)
[2021-07-02] MEDS ORDERED: ONDANSETRON PF 4 MG/2 ML VIAL. IVP ONE (00:30)
[2021-07-02] MEDS ORDERED: LIDO:MAALOX 1:1 20 ML SINGLE DOSE. SWSW ONE (00:30)
[2021-07-02 00:38] LABS: BASO # 0.1 x10^3/uL (0.0-0.2); BASO % 1 % (0-3); EOS # 0.7 x10^3/uL (0.0-0.7); EOS % 8 % (0-3); HEMOGLOBIN 12.4 g/dL (12.0-15.5); LYMPH # 2.8 x10^3/uL (1.0-4.8); LYMPH % 33 % (24-48); MEAN CORPUSCULAR HEMOGLOBIN 26 pg (25-35); MEAN CORPUSCULAR HGB CONC 32 g/dL (31-37); MEAN CORPUSCULAR VOLUME 81 fL (79-100); MONO % 12 % (0-9); NEUT # 3.9 x10^3/uL (1.8-7.7); NEUT % 46 % (31-73); PLATELET COUNT 296 x10^3/uL (140-400); RED CELL DISTRIBUTION WIDTH 15.3 % (11.5-14.5); WHITE BLOOD COUNT 8.6 x10^3/uL (4.0-11.0)
[2021-07-02 00:41] LABS: BILIRUBIN,URINE NEGATIVE (NEG); CLARITY,URINE CLEAR; COLOR,URINE YELLOW; NITRITE,URINE NEGATIVE (NEG); PH,URINE 5.5 (<5.0-8.0); PROTEIN,URINE NEGATIVE (NEG-TRACE); UROBILINOGEN,URINE 0.2 mg/dL (0.2 mg/dL)
[2021-07-02 00:43] LABS: BACTERIA,URINE FEW /HPF (0-FEW); RBC,URINE 0 /HPF (0-2)
[2021-07-02 00:45] LABS: CALCIUM 8.9 mg/dL (8.5-10.1); CREATININE 0.8 mg/dL (0.6-1.0); GFR 78.7; POTASSIUM 3.9 mmol/L (3.5-5.1)
[2021-07-02 00:46] LABS: BARBITURATES NEG (NEG); BENZODIAZEPINES NEG (NEG); CANNABINOIDS NEG (NEG); COCAINE NEG (NEG); METHADONE NEG (NEG); OPIATES NEG (NEG); PHENCYCLIDINE NEG (NEG)
[2021-07-02 00:51] LABS: ALBUMIN 3.4 g/dL (3.4-5.0); ALBUMIN/GLOBULIN RATIO 0.8 (1.0-1.7); TOTAL BILIRUBIN 0.3 mg/dL (0.2-1.0); TOTAL PROTEIN 7.5 g/dL (6.4-8.2)
[2021-07-02 00:59] LABS: AMPHETAMINE/METHAMPHETAMINE NEG (NEG)
[2021-07-02] MEDS ORDERED: OXYC1TAB15 PO (01:12)
[2021-07-02 01:24] VITALS: BP 104/56
[2021-07-02] MEDS ORDERED: oxyCODONE/APAP 5/325 1 TAB TABLET PO ONE (01:30)
== END 2021-07-02 01:24 | disposition home or self-care (01) ==
LOC: ER 23:57
DX: G89.29 Other chronic pain (principal); R10.11 Right upper quadrant pain; R10.13 Epigastric pain; Z87.891 Personal history of nicotine dependence; Z90.49 Acquired absence of other specified parts of digestive tract; Z98.51 Tubal ligation status; Z88.0 Allergy status to penicillin; Z88.8 Allergy status to other drugs, medicaments and biological substances
CPT/HCPCS: 36415; 80053; 80307; 81001; 81025; 83690; 85025; 96361; 96374; 99283; J2405; J7030